=== PATIENT | female | born 1995 | race Caucasian/White ===

== ENCOUNTER 2017-07-13 15:46 | Emergency (ER) | payer OTHER ==
[~2017-07-13] VITALS: Ht 154.9 cm; Wt 71.0 kg
[2017-07-13 15:46] VITALS: BP 126/60; PULSE 101; RESP 20; TEMP 98.6; O2SAT 100
[~2017-07-13 15:46] MED LIST: ACET325S8 PO
[2017-07-13] MEDS ORDERED: PREN0.01 (17:12)
--- NOTE | 2017-07-13 17:47 | PD ---
HPI . Bleeding Chief Complaint: Related Problem Time Seen by Provider: 17:04 Travel History International Travel<30 days: No Contact w/Intl Traveler<30days: No Traveled to known affect area: No History of Present Illness HPI Patient presents complaining with bleeding in early . She states that she is about 9 weeks along. 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 She is a G3 T1Ab1 ( spontaneous). She had her first baby had an outside hospital and does not know her blood type. She does not recall having to have shots during the . Patient reports the onset of her symptoms at about 1:30 PM. The bleeding was very mild. It has resolved. It is associated with some cramping which she rates 4/10. PFSH Past Medical History Medical History: Denies Significant Hx ?: : 3 Para: 2 Miscarriage: 1 Past Surgical History Section: Yes Gynecologic Surgery: Yes () Social History Alcohol Use: No Tobacco Use: Yes (4-5 CIGARETTES PER DAY) Substance Use: No Allergies-Medications (Allergen,Severity, Reaction): Coded Allergies: No Known Allergies (Unverified Adverse Reaction, Unknown, 07/13/17) Reported Meds & Prescriptions Reported Meds & Active Scripts Active Reported [ Vitamins] Review of Systems Except as stated in HPI: all other systems reviewed are Neg General / Constitutional: No: Fever, Chills Gastrointestinal: No: Nausea, Vomiting Genitourinary: Positive: Pelvic Pain, Vaginal Bleeding, No: Urgency, Frequency , Dysuria Physical Exam Narrative GENERAL: Awake and alert and in no acute distress. SKIN: Warm and dry. HEAD: Normocephalic/atraumatic. EYES: Pupils are equal. Extraocular movements are intact. NECK: Normal range of motion. CARDIOVASCULAR: Regular rate and rhythm. RESPIRATORY: Nonlabored respirations. ABDOMEN: Soft and nontender. MUSCULOSKELETAL: Atraumatic. NEUROLOGICAL: Nonfocal. PSYCHIATRIC: Appropriate mood and affect. Data Data Last Documented VS Vital Signs Date Time Temp Pulse Resp B/P (MAP) Pulse Ox O2 Delivery O2 Flow Rate FiO2 07/13/17 19:30 76 18 112/59 (76) 100 Room Air 07/13/17 15:46 98.6 Orders Orders Beta Hcg (Quant/Titer) (07/13/17 17:14) Complete Rh (07/13/17 17:14) Urinalysis - C+S If Indicated (07/13/17 17:14) Ed Urine Pregnancytest Poc (07/13/17 17:14) Ed Poc Ultrasound (07/13/17 17:14) Us Pelvis (Ques Preg/Ectopic) (07/13/17 ) Labs Laboratory Tests Test 07/13/17 17:20 07/13/17 17:29 Urine Color YELLOW Urine Turbidity HAZY Urine pH 6.5 Urine Specific [place] 1.016 Urine Protein NEG mg/dL Urine Glucose (UA) NEG mg/dL Urine Ketones 150 mg/dL Urine Occult Blood TRACE Urine Nitrite NEG Urine Bilirubin NEG Urine Urobilinogen 2.0 MG/DL Urine Leukocyte Esterase TRACE Urine RBC 0-3 /hpf Urine WBC 0-2 /hpf Urine Squamous Epithelial Cells 6-8 /hpf Urine Bacteria RARE /hpf Microscopic Urinalysis Comment CULT NOT INDICATED Human Chorionic Gonadotropin, Quant [id number] MIU/ML MDM Medical Decision Making Medical Screen Exam Complete: Yes Emergency Medical Condition: Yes Differential Diagnosis Differential diagnosis of bleeding in includes but is not limited to physiologic bleeding, spontaneous AB, ectopic , placenta previa Narrative Course This patient presents with scant bleeding in early . It has resolved. I have ordered a quantitative hCG, UA, blood type and ultrasound. UA neg Blood type B+ quant 130K Last Impressions Pelvis Ultrasound 07/13/17 0000 Signed Impressions: Service Date/Time: Thursday, July 13, 2017 18:34 - CONCLUSION: 1. Intrauterine with approximate gestational age of 10 weeks 4 days. heart activity is seen with approximate heart rate of 170 beats per minute. 2. Possible 2 cm a 1 cm subchorionic hemorrhage. 3. Ovaries within normal limits. Kyle Aragon MD Procedures Procedure Narrative Emergency Department Pelvic ultrasound was performed with patient consent. The curvilinear probe was used in the transverse and sagittal views within the suprapubic region revealing positive intrauterine . cardiac activity was seen. Diagnosis Primary Impression: Bleeding in early Patient Instructions: First Trimester (ED), General Instructions Disposition: 01 DISCHARGE HOME Condition: Stable Rose Mary Jenkins MD Jul 13, 2017 17:47
[2017-07-13 17:58] LABS: BLOOD, URINE TRACE (NEG); GLUCOSE,URINE NEG (NEG); KETONE, URINE 150 mg/dL (NEG); NITRITE,URINE NEG (NEG); PH, URINE 6.5 (5.0-8.5); URINE COLOR YELLOW (YELLW/STRAW)
[2017-07-13 18:24] LABS: WBC, URINE 0-2 /hpf (0-5)
[2017-07-13 18:25] LABS: BACTERIA, URINE RARE /hpf; COMMENT (UR) CULT NOT INDICATED; CULTURE IF INDICATED CULT NOT INDICATED; RBC, URINE 0-3 /hpf (0-3)
[2017-07-13 18:27] LABS: BETA HCG QUANT 130614 MIU/ML (0-5)
[2017-07-13 19:30] VITALS: BP 112/59; PULSE 76; RESP 18; O2SAT 100
--- NOTE | 2017-07-13 20:21 | RADRPT ---
EXAM DATE/TIME: 07/13/2017 18:34 [facility] COMPARISON: No previous studies available for comparison. INDICATIONS : Ectopic. LAB(S): Beta-[facility] MEDICAL HISTORY : . SURGICAL HISTORY : section. ENCOUNTER: Initial ACUITY: 1 day PAIN SCORE: 0/10 LOCATION: Bilateral pelvis MEASUREMENTS: UTERUS: 10.9 x 9.3 x 6.3 cm ENDOMETRIAL STRIPE: 12 mm RIGHT OVARY: 3.3 x 2.0 x 1.8 cm LEFT OVARY: 2.3 x 1.7 x 1.6 cm FREE FLUID: No CROWN RUMP LENGTH: 3.7 cm = 10 WKS 4 DAYS FHR: 170 BPM FINDINGS: UTERUS: Gestational sac is seen within the uterus. The crown-rump length is consistent with approximate gesta tional age of 10 weeks 4 days. heart activity is identified with an approximate heart rat e of 170 beats per minute. Possible subchorionic hemorrhage measuring 2.0 x 1.0 x 1.0 cm. RIGHT OVARY: Ovary contains no mass or significant cystic lesion. LEFT OVARY: Ovary contains no mass or significant cystic lesion. MISCELLANEOUS: No free fluid. CONCLUSION: 1. Intrauterine with approximate gestational age of 10 weeks 4 days. heart activity i s seen with approximate heart rate of 170 beats per minute. 2. Possible 2 cm a 1 cm subchorionic hemorrhage. 3. Ovaries within normal limits. Kyle Aragon MD on July 13, 2017 at 20:15 Board Certified Radiologist. This report was verified electronically.
== END 2017-07-13 21:24 | disposition home or self-care (01) ==
LOC: NEPD 15:46
DX: O20.9 Hemorrhage in early pregnancy, unspecified (principal); Z72.0 Tobacco use
CPT/HCPCS: 76700; 81001; 84702; 84703; 86901; 99284

== ENCOUNTER 2017-09-12 16:13 | Emergency (ER) | payer MEDICAID, OTHER | END 2017-09-12 17:25 | disposition home or self-care (01) | LOC: NEPK 16:13 | DX: S60.221A Contusion of right hand, initial encounter (principal); W22.01XA Walked into wall, initial encounter; Z3A.18 18 weeks gestation of pregnancy; F17.200 Nicotine dependence, unspecified, uncomplicated | CPT/HCPCS: 73130; 99283 ==